=== PATIENT | male | born 1985 | race African-American/Black ===

== ENCOUNTER 2024-01-25 09:14 | Emergency (ER) | payer MEDICAID ==
[~2024-01-25] VITALS: Ht 182.9 cm; Wt 82.0 kg
[2024-01-25 09:29] VITALS: TEMP 98.3; O2SAT 100
[2024-01-25] MEDS: KETOROLAC 30MG/ML VIAL IM ONE (11:00)
[2024-01-25] MEDS: HYDROCODONE/ACETAMINOPHEN 5/325MG TABLET PO ONE (11:01)
[2024-01-25] MEDS ORDERED: NAPR-677 MT (11:10)
[2024-01-25 11:26] VITALS: BP 142/86; PULSE 66; RESP 16; O2SAT 99
== END 2024-01-25 11:27 | disposition home or self-care (01) ==
LOC: ER 09:14
DX: M25.552 Pain in left hip (principal); M54.2 Cervicalgia
CPT/HCPCS: 73502; 96372; 99283; J1885; Z7610

== ENCOUNTER 2025-03-16 11:43 | Emergency (ER) | payer MEDICAID ==
[~2025-03-16] VITALS: Ht 177.8 cm; Wt 94.0 kg
[~2025-03-16 11:43] MED LIST: NAPR-677 MT
[2025-03-16 12:04] VITALS: TEMP 37.1; O2SAT 97
[2025-03-16] MEDS ORDERED: IBUP-1455 MT (13:20)
[2025-03-16 13:32] VITALS: BP 134/87; PULSE 62; RESP 12; O2SAT 100
== END 2025-03-16 13:41 | disposition home or self-care (01) ==
LOC: ER 11:43
DX: S43.52XA Sprain of left acromioclavicular joint, initial encounter (principal); S43.109A Unspecified dislocation of unspecified acromioclavicular joint, initial encounter; Z79.1 Long term (current) use of non-steroidal anti-inflammatories (NSAID); X58.XXXA Exposure to other specified factors, initial encounter; Y93.89 Activity, other specified; Y92.89 Other specified places as the place of occurrence of the external cause; Y99.8 Other external cause status
CPT/HCPCS: 73030; 99283; Z7610